=== PATIENT | female | born 1980 | race Caucasian/White ===

== ENCOUNTER 2020-08-09 14:31 | Outpatient (CLI) | payer BC, SELFPAY | END 2020-08-09 14:32 | disposition home or self-care (01) | LOC: ANHSURGERY 14:33 | PROVIDERS: PCP Family Medicine; Visit Provider Urology | DX: Z01.818 Encounter for other preprocedural examination (principal); N39.3 Stress incontinence (female) (male) | CPT/HCPCS: 87077; 87086; 87088; 87186 ==

== ENCOUNTER 2020-08-15 01:53 | Outpatient (CLI) | payer BC, SELFPAY ==
[2020-08-15 19:16] LABS: SARS-CoV-2 RNA PCR Negative
== END 2020-08-15 01:54 | disposition home or self-care (01) ==
LOC: ANHCOVIDDT 01:53
PROVIDERS: PCP Family Medicine; Visit Provider Urology
DX: Z01.812 Encounter for preprocedural laboratory examination (principal); Z20.828 Contact with and (suspected) exposure to other viral communicable diseases
CPT/HCPCS: 87635; C9803; U0003

== ENCOUNTER 2020-08-18 01:34 | Day surgery (SDC) | payer BC, SELFPAY ==
[2020-08-07 08:53] VITALS: BMI 36.8
--- NOTE | 2020-08-11 08:05 | PM.IMHP ---
H&P: HPI History of Present Illness Date/Time: 08/11/20 08:05 Chief complaint: Stress Incontinence Narrative: Bree Beverly is a 40 year old female with CAROLYN. Component of OAB and leakage without awanress as well Review of Systems Review of Systems: All systems reviewed & are unremarkable except as noted in HPI and below PMFSH Social History Social History Smoking status: Never smoker Alcohol intake: current Drinks per week: 3 Substance use: never Spiritual care concerns: No Meds Home Medications and Allergies Home Medications Medication Instructions Recorded Confirmed Type meloxicam [Mobic] 15 mg PO HS 08/07/20 08/07/20 History pantoprazole [Protonix] 40 mg PO QAM 08/07/20 08/07/20 History Allergies Allergy/AdvReac Type Severity Reaction Status Date / Time No Known Allergies Allergy Unverified 08/07/20 08:50 Exam Const: General: cooperative and healthy appearing HENMT: Head: normal to inspection Eyes: General: appearance normal, both eyes and all related structures Neck: Neck: normal visual inspection Resp: Effort & Inspection: normal respiratory effort and able to speak in complete sentences GI: Inspection: normal to inspection : General: Yes no CVA tenderness Skin: General skin exam: normal color Neuro: General: patient oriented x3 Assessment and Plan Assessment and plan (1) CAROLYN (stress urinary incontinence, female): Code(s): N39.3 - Stress incontinence (female) (male) Status: Acute Assessment and Plan: urethral sling
--- NOTE | 2020-08-18 07:19 | WPDHPUPDATE1 ---
History and Physical Update Update Date/Time: 08/18/20 07:19 History and Physical has been reviewed, including an updated exam of the patient. There are NO changes in the patient's condition. Risks, benefits, and alternatives have been discussed and questions answered. Patient agrees to proceed with procedure.
[2020-08-18] MEDS: LACTATED RINGERS 1,000 ML 30 ML IV CONT (08:04)
[2020-08-18 08:14] VITALS: BP 131/80; PULSE 91; RESP 16; TEMP 36.7; O2SAT 100
--- NOTE | 2020-08-18 09:16 | P.PNAN_ITS ---
Anes - Initial Pre Proc Eval Procedure: Operation Date: 08/18/20 09:30 Proposed Procedures p Urethral Sling - Edson Mendez MD Date/Time: 08/18/20 09:16 Surgeon: Edson Mendez MD Pre Op Diagnosis: Stress Incontinence Patient Data Age: 40 Gender: F Height: 5 ft 5 in Weight: 96.3 kg Last Vital Signs Temp 98.1 F 08/18/20 08:14 Pulse 91 08/18/20 08:14 Resp 16 08/18/20 08:14 BP 131/80 08/18/20 08:14 Pulse Ox 100 08/18/20 08:14 Allergies Allergy/AdvReac Type Severity Reaction Status Date / Time No Known Allergies Allergy Verified 08/18/20 07:36 Home Medications Medication Instructions Recorded Confirmed Type meloxicam [Mobic] 15 mg PO HS 08/07/20 08/18/20 History pantoprazole [Protonix] 40 mg PO QAM 08/07/20 08/18/20 History Patient hx anesthesia problems: none Family hx anesthesia problems: none [facility] Past Medical History Medical History (Updated 08/18/20 @ 08:17 by Blake Corado MD) GERD (gastroesophageal reflux disease) OSMANY (obstructive sleep apnea) Rheumatoid arthritis Social History Social History Smoking status: Never smoker Alcohol intake: current Drinks per week: 3 Substance use: never Living arrangements: alone Spiritual care concerns: No Anes - Eval Final PreProcedure Day of Procedure 08/18/20 09:16 Patient weight: overweight Heart: regular rate and rhythm Lungs: clear to auscultation Airway: Mallampati scale class II Neurological: alert and oriented Last oral intake: >/= 8 hours ASA classification: III Emergent: no Anesthetic plan: proceed Anesthesia type and monitoring: general GIVS and standard monitoring Informed Consent: The patient's anesthetic plan and its attendant risks and benefits were discussed with the patient/family/POA. Questions were solicited and answers provided to the satisfaction of the patient/family/POA.
[2020-08-18] MEDS: ceFAZolin 2 GM/D5W 50 ML 2 GM/50 ML BAG IVPB (09:48)
[2020-08-18] MEDS: KETOROLAC 30 MG/ML VIAL (*BKC) 15 MG IV PUSH (10:15)
--- NOTE | 2020-08-18 10:17 | PM.PROC ---
Procedure Note - Detailed Date of procedure: 08/18/20 Pre-op diagnosis: Stress Incontinence Stress urinary incontinence Post-op diagnosis: same Procedure performed: Transobturator Mid-urethral sling Cystoscopy Description of procedure: anesthesia: mac/local This is a patient with confirmed stress urinary incontinence. She desires correction. She understands the risks of bleeding, infection, damage to the urinary tract, lack of cure of stress incontinence, recurrence of stress incontinence, postoperative voiding dysfunction including incontinence and retention, need for ancillary procedures to loosen remove the sling, postoperative voiding dysfunction including retention and overactive bladder, hip and leg pain, dyspareunia, mesh related complications including exposure and extrusion. She agrees to proceed. She understands it will not help overactive bladder symptoms if present. She was correctly identified and informed consent obtained. She is brought to the operating room. She was given appropriate anesthesia. She was placed in the dorsal lithotomy position. All pressure points were padded. She was given appropriate perioperative antibiotics and a time-out performed. A Quijano catheter is placed. I marked out the thigh incisions anesthetize the skin and made those incisions. I anesthetized the anterior vaginal wall over the mid urethra. I made a 1 cm incision. I dissected out laterally taking great care not to injure the urethra or the vaginal wall. Passed the helical trocars 1st on the left and then on the right from the thigh incision towards the vaginal incision. Sling was connected to the trocars and brought out through the thigh incision. I tensioned the sling appropriately. I cut and removed the plastic sheaths. I closed the incision with 2 0 Vicryl. I then performed cystoscopy. There was no surgical artifact or abnormalities inside the bladder. The urethra was normal without surgical artifact. I cut the excess sling material. I closed the incisions with glue. She was awakened and transferred to the PACU in stable condition. Implants: Mid urethral sling Surgeon: Esdon Mendez MD Drains: No Packing: No Pathology: none sent Complications: No immediate complications Condition: stable Disposition: PACU
[2020-08-18 10:25] VITALS: BP 106/62; PULSE 80; RESP 16; O2SAT 97
[2020-08-18 10:55] VITALS: BP 119/80; PULSE 82; RESP 16
== END 2020-08-18 11:25 | disposition home or self-care (01) ==
PROVIDERS: PCP Family Medicine; Visit Provider Urology
PROC: (CPT 57288; principal; 2020-08-18 09:30)
DX: N39.3 Stress incontinence (female) (male) (principal); M06.9 Rheumatoid arthritis, unspecified; K21.9 Gastro-esophageal reflux disease without esophagitis; G47.33 Obstructive sleep apnea (adult) (pediatric)
CPT/HCPCS: 57288; A9270; C1771; J0690; J1885; J2250; J2405; J2704; J3010; J7030; J7120

== ENCOUNTER 2021-03-06 09:26 | Outpatient (CLI) | payer BC, SELFPAY ==
--- NOTE | ~2021-03-06 | XR_ITS ---
EXAMINATION: XR hand BI arthritis min 3V DATE: 03/06/2021 10:04 INDICATION: Unspecified osteoarthritis, unspecified site. TECHNIQUE: 4 views of right hand and 4 views of left hand on a total of 7 radiographs were obtained. COMPARISON: None. FINDINGS: RIGHT HAND: Bone alignment is normal. No fracture. Joint spaces are normal. LEFT HAND: Bone alignment is normal. No fracture. Joint spaces are normal. IMPRESSION: 1. No arthritis. Reviewed, dictated and finalized at location A. IMPRESSION: 1. No arthritis.
--- NOTE | ~2021-03-06 | XR_ITS ---
EXAMINATION: XR foot LT standing 2V INDICATION: Left foot pain TECHNIQUE: Two views of the left foot are obtained COMPARISON: None available FINDINGS: There is mild osteoarthritis of multiple interphalangeal joints. No fracture is identified. Bone alignment is normal. The soft tissues are unremarkable. IMPRESSION: 1. No acute osseous abnormality. Reviewed, dictated and finalized at location A.
--- NOTE | ~2021-03-06 | XR_ITS ---
EXAMINATION: XR foot RT standing 2V INDICATION: Right foot pain TECHNIQUE: Two views of the right foot are obtained. COMPARISON: None available FINDINGS: There is mild osteoarthritis of multiple interphalangeal joints. No fracture is identified. Bone alignment is normal. The soft tissues are unremarkable. IMPRESSION: 1. No acute osseous abnormality. Reviewed, dictated and finalized at location A.
[2021-03-06 10:04] LABS: Add Urine Microscopic? YES; Appearance Urine Cloudy (Clear); Bacteria Urine Trace /hpf; Bilirubin Urine Negative (Negative); Blood Urine Negative (Negative); Color Urine Amber (Yellow); Glucose Urine UA Negative (Negative); Ketones Urine Negative (Negative); Leukocyte Esterase Ur Negative LEU/UL (Negative); Mucus Urine Few /lpf; Nitrate Urine Negative (Negative); Protein Urine 1+ mg/dL (Negative); RBC Urine 0-2 /hpf (0-2); Specific Grav Ur 1.023 (1.001-1.035); Squamous Epithelial Cell Urine Many /hpf (Few); Urobilinogen Urine Negative mg/dL (<2.0); WBC Urine 0-3 /hpf
[2021-03-06 10:15] LABS: Hematocrit 39.1 % (37.0-47.0); Mean Corpuscular HGB Conc 33.2 g/dl (32-36); Mean Corpuscular Hemoglobin 29.9 pg (26-34); Mean Corpuscular Volume 89.9 fl (80-100); Mean Platelet Volume 10.9 fl (7.4-10.4); Platelet Count Result 264 k/mm3 (150-375); Red Blood Count 4.35 M/mm3 (4.2-5.4); Red Cell Distribution Width 12.3 % (11.5-14.5); White Blood Count 6.8 K/mm3 (4.5-10.0)
[2021-03-06 10:28] LABS: Alanine Aminotransferase 26 U/L (4-35); Albumin Level 4.9 g/dL (3.5-5.1); Alkaline Phosphatase 76 U/L (38-126); Anion Gap 9 mmol/L (8-16); Aspartate Amino Transferase 29 U/L (14-36); Bilirubin,Total 0.5 mg/dL (0.2-1.3); Blood Urea Nitrogen 17 mg/dL (7-17); CRP 0.8 mg/dL (<1.0); Calcium 9.8 mg/dL (8.4-10.2); Carbon Dioxide 28 mmol/L (22-30); Chloride 103 mmol/L (98-107); Estimated Glomerular Filt Rate > 60; Glucose 89 mg/dL (65-105); Potassium 4.4 mmol/L (3.4-5.0); Sodium 140 mmol/L (137-145)
[2021-03-06 10:34] LABS: Complement C3 117 mg/dL (88-165)
[2021-03-06 10:57] LABS: Erythrocyte Sedimentation Rate 17 mm/hr (0-20)
[2021-03-06 11:19] LABS: Thyroid Stimulating Hormone Reflex < 0.015 uIU/mL (0.465-4.68)
[2021-03-07 06:09] LABS: Free T4 Free Thyroxine Reflex 1.03 ng/dL (0.78-2.19)
[2021-03-07 07:05] LABS: Total Triiodothyronine (T3) 1.06 NG/ML (0.97-1.69)
[2021-03-09 09:48] LABS: SM Antibody <1.0; SM/RNP Antibody <1.0
[2021-03-09 12:48] LABS: SS-A <1.0; SS-B <1.0
[2021-03-09 21:31] LABS: Anti Cyclic Citrullinated Pept <16 Units (<20)
[2021-03-10 05:37] LABS: Thyroid Peroxidase Antibodies 1 IU/mL (<9)
== END 2021-03-06 09:27 | disposition home or self-care (01) ==
PROVIDERS: PCP Family Medicine; Visit Provider Internal Medicine
DX: M19.90 Unspecified osteoarthritis, unspecified site (principal); R76.8 Other specified abnormal immunological findings in serum; Z51.81 Encounter for therapeutic drug level monitoring; Z79.899 Other long term (current) drug therapy
CPT/HCPCS: 36415; 73130; 73620; 80053; 81001; 84439; 84443; 84480; 85027; 85652; 86140; 86160; 86200; 86225; 86235; 86376